=== PATIENT | male | born 1950 | race Caucasian/White ===

== ENCOUNTER 2023-12-07 07:53 | Day surgery (SDC) | payer MEDICARE, OTHER ==
[~2023-12-07] VITALS: Ht 172.7 cm; Wt 62.2 kg
[2023-12-07] VITALS (22 sets, daily range): BP systolic 84–144; BP diastolic 53–77
[~2023-12-07 07:53] MED LIST: AMLO5 PO; ATOR10 PO; GABA100; LISI20 PO; Lactated Ringer's 1,000 ML IV SCH; PREDNISOLONE LEFTEYE; ZOLP10 PO
--- NOTE | 2023-12-07 08:21 | NUR ---
Ambulatory in Day Surgery History, Chart, Medications and Allergies reviewed before start of procedure.Lungs clear T/O to Auscultation. Patient confirms NPO status and agrees with scheduled surgery. Patient states colon prep results clear. Patient States Post-Procedure ride home has been arranged.
[2023-12-07] MEDS ORDERED: propofoL 0 ML IV ONE (08:42)
[2023-12-07] MEDS ORDERED: propofoL 40 ML IV ONE (08:43)
[2023-12-07] MEDS ORDERED: Midazolam HCl 1MG / ML 2ML Vial ONE (09:04)
--- NOTE | 2023-12-07 09:08 | NUR ---
12/07/23 0908 Mark Tran HISTORY, CHART, MEDICATIONS AND ALLERGIES REVIEWED BEFORE START OF PROCEDURE. PATIENT CONFIRMS NPO STATUS AND AGREES WITH SCHEDULED PROCEDURE. 3-LEAD EKG REVIEWED WITH PHYSICIAN PRIOR TO START OF PROCEDURE. MONITOR INTACT WITH CONTINUOUS PULSE OXIMETRY,CAPNOGRAPHY, 3-LEAD EKG, INTERMITTENT BP. SUPPLEMENTAL O2 TO BE TITRATED THROUGHOUT PROCEDURE TO MAINTAIN O2 SATURATION ABOVE 90%. PATIENT DETERMINED TO BE ASA APPROPRIATE FOR PROPOFOL SEDATION PRIOR TO START OF PROCEDURE BY
--- NOTE | 2023-12-07 09:44 | NUR ---
Patient up to Ambulate independently. Gait steady. VSS. On RA. No c/o pain or nausea. Understood discharge teaching. Patient States Post-Procedure ride home has been arranged. [facility] patient.
== END 2023-12-07 22:40 | disposition home or self-care (01) ==
LOC: ORSCMMR 07:53 → ORD 09:00 → ORSCMMR 09:00
PROVIDERS: Internal Medicine Gastroenterology
PROC: 0DBM8ZX Excision of Descending Colon, Via Natural or Artificial Opening Endoscopic, Diagnostic (ICD-10-PCS; principal; 2023-12-07 09:00)
PROC: 0DBN8ZX Excision of Sigmoid Colon, Via Natural or Artificial Opening Endoscopic, Diagnostic (ICD-10-PCS; principal; 2023-12-07 09:00)
PROC: 0DBK8ZX Excision of Ascending Colon, Via Natural or Artificial Opening Endoscopic, Diagnostic (ICD-10-PCS; principal; 2023-12-07 09:00)
PROC: 0DBL8ZX Excision of Transverse Colon, Via Natural or Artificial Opening Endoscopic, Diagnostic (ICD-10-PCS; principal; 2023-12-07 09:00)
DX: Z12.11 Encounter for screening for malignant neoplasm of colon (principal); D12.2 Benign neoplasm of ascending colon; D12.3 Benign neoplasm of transverse colon; D12.4 Benign neoplasm of descending colon; K63.5 Polyp of colon; Z86.010 Personal history of colon polyps; I10 Essential (primary) hypertension; E78.00 Pure hypercholesterolemia, unspecified; Z79.899 Other long term (current) drug therapy
CPT/HCPCS: 88305; J2250; J2704; J7120